=== PATIENT | male | born 1965 | race Two or more races ===

== ENCOUNTER 2020-06-08 14:17 | Emergency (ER) | payer OTHER, SELFPAY ==
[~2020-06-08] VITALS: Ht 175.3 cm; Wt 80.0 kg
[2020-06-08 14:22] VITALS: BP 145/85
== END 2020-06-08 16:00 | disposition home or self-care (01) ==
LOC: ER 14:17
DX: Z03.818 Encounter for observation for suspected exposure to other biological agents ruled out (principal); Z00.00 Encounter for general adult medical examination without abnormal findings
CPT/HCPCS: 99283; C9803; U0003